=== PATIENT | male | born 1975 | race Caucasian/White ===

== ENCOUNTER 2020-11-15 01:03 | Emergency (ER) | payer OTHER ==
[~2020-11-15] VITALS: Ht 188 cm; Wt 81.7 kg
[2020-11-15 01:36] LABS: BASOPHILS 0.5 % (0.0-2.0); EOSINOPHILS 0.8 % (0.0-3.0); HEMATOCRIT 46.4 % (42.0-52.0); HEMOGLOBIN 15.4 gm/dL (14.0-18.0); LYMPHOCYTES 8.8 % (24.0-44.0); MCH 29.6 pg (26.0-34.0); MCHC 33.1 g/dL (28.0-37.0); MCV 89.4 fL (80.0-100.0); PLATELET COUNT 246 thou/uL (150-400); POLYS 83.9 % (36.0-66.0); RDW 13.6 % (10.5-14.5); WBC 14.3 thou/uL (4.0-11.0)
[2020-11-15 01:44] LABS: ANION GAP 9 mmol/L (7-16); BUN 11 mg/dL (7-18); CALCIUM 8.4 mg/dL (8.5-10.1); CHLORIDE 97 mmol/L (98-107); CO2 28 mmol/L (21-32); CREATININE 0.8 mg/dL (0.7-1.3); GLUCOSE 94 mg/dL (74-106); POTASSIUM 3.9 mmol/L (3.5-5.1); SODIUM 134 mmol/L (136-145)
[2020-11-15 01:49] LABS: ALBUMIN 3.9 g/dL (3.4-5.0); DIRECT BILIRUBIN < 0.1 mg/dL (<0.1-0.2); SGOT 25 U/L (15-37); SGPT 31 U/L (30-65); TOTAL BILIRUBIN 0.3 mg/dL (0.2-1.0); TOTAL PROTEIN 7.5 g/dL (6.4-8.2)
[2020-11-15] MEDS ORDERED: PERCOCET 5-3251 EACH PO (03:21)
[2020-11-15 03:41] VITALS: BP 144/97
== END 2020-11-15 03:43 | disposition home or self-care (01) ==
LOC: ER 01:03
PROVIDERS: Student in an Organized Health Care Education/Training Program
DX: S22.41XA Multiple fractures of ribs, right side, initial encounter for closed fracture (principal); M25.532 Pain in left wrist; M25.572 Pain in left ankle and joints of left foot; F12.90 Cannabis use, unspecified, uncomplicated; Z88.0 Allergy status to penicillin; X58.XXXA Exposure to other specified factors, initial encounter; Y93.89 Activity, other specified; Y92.89 Other specified places as the place of occurrence of the external cause; Y99.8 Other external cause status